=== PATIENT | male | born 1960 | race African-American/Black ===

== ENCOUNTER 2021-03-18 12:27 | Inpatient (IN) | payer OTHER ==
[2021-03-18 13:23] VITALS: BMI 37.8
[2021-03-18] MEDS ORDERED: MAG HYDROX/AL HYDROX/SIMETH 30 ML UNIT-DOSE CUP PO PRN (15:20)
[2021-03-18] MEDS ORDERED: BISMUTH SUBSALICYLATE 524 MG/30 ML PO PRN (15:20)
[2021-03-18] MEDS ORDERED: NICOTINE POLACRILEX 2 MG GUM BUC PRN (15:20)
[2021-03-18] MEDS ORDERED: MENTHOL/PHENOL 1 EACH UD MM PRN (15:20)
[2021-03-18] MEDS ORDERED: MAGNESIUM HYDROX 2400MG/30ML ORAL SUSPENSION 30 ML CUP PO PRN (15:20)
[2021-03-18] MEDS ORDERED: IBUPROFEN 400 MG TABLET (FP) PO PRN (15:20)
[2021-03-18] MEDS ORDERED: ONDANSETRON *ODT* 4 MG TABLET SL PRN (15:20)
[2021-03-18] MEDS ORDERED: MAGNESIUM CITRATE 300 ML BOTTLE PO PRN (15:20)
[2021-03-18] MEDS ORDERED: diazePAM 5 MG TABLET PO PRN (15:20)
[2021-03-18] MEDS ORDERED: ACETAMINOPHEN 325 MG TABLET (FP) PO PRN ×2 (15:20)
[2021-03-18] MEDS ORDERED: hydrOXYzine PAMOATE 25 MG CAPSULE (FP) PO PRN (15:20)
[2021-03-18] MEDS: diazePAM 5 MG TABLET PO SCH ×2 (16:30→22:26)
[2021-03-18] MEDS ORDERED: DIVALPROEX NA *ER* EXTEND REL 500 MG TABLET.SA (FP) PO SCH (22:00)
[2021-03-18] MEDS: MELATONIN 5 MG TABLETS PO SCH (22:26)
[2021-03-18] MEDS: TAMSULOSIN HCL 0.4 MG CAP PO SCH (22:26)
[2021-03-18] MEDS: ATORVASTATIN CA 10 MG TABLET (FP) PO SCH (22:26)
[2021-03-18] MEDS: THIAMINE HCL 100 MG TABLET (FP) PO SCH (22:26)
[2021-03-19] MEDS: diazePAM 5 MG TABLET PO SCH ×4 (05:38→22:10)
[2021-03-19] MEDS: HYDROCHLOROTHIAZIDE 25 MG TABLET (FP) PO SCH (10:11)
[2021-03-19] MEDS: NIFEdipine E.R. 30 MG TABLET PO SCH (10:11)
[2021-03-19] MEDS: PRENATAL VITAMINS W/ FOLIC ACID TABLET (FP) PO SCH (10:11)
[2021-03-19] MEDS: METHOCARBAMOL 500 MG TABLET PO PRN (10:12)
[2021-03-19 11:02] LABS: HEMATOCRIT 40.2 % (35.4-49); HEMOGLOBIN 12.5 GM/dL (11.7-16.9); MCH 22.8 pg (25.7-33.7); MCHC 31.1 g/dl (32.0-35.9); MEAN CELL VOLUME 73.5 fl (80-96); MEAN PLT VOLUME 9.2 fl (7.5-11.1); PLATELET COUNT 219 10^3/uL (134-434); RBC 5.46 M/mm3 (4.00-5.60); RDW 16.2 % (11.9-15.9); WHITE BLOOD COUNT 5.9 K/mm3 (4.0-10.0)
[2021-03-19 11:16] LABS: ALBUMIN 3.1 g/dl (3.4-5.0); BLOOD UREA NITROGEN 17.4 mg/dL (7-18); CALCIUM 8.6 mg/dL (8.5-10.1)
[2021-03-19 11:18] LABS: CREATININE 0.8 mg/dL (0.55-1.3)
[2021-03-19 11:19] LABS: BILIRUBIN,TOTAL 0.2 mg/dL (0.2-1)
[2021-03-19] MEDS: ATORVASTATIN CA 10 MG TABLET (FP) PO SCH (22:11)
[2021-03-19] MEDS: MELATONIN 5 MG TABLETS PO SCH (22:11)
[2021-03-19] MEDS: TAMSULOSIN HCL 0.4 MG CAP PO SCH (22:11)
[2021-03-19] MEDS: THIAMINE HCL 100 MG TABLET (FP) PO SCH (22:11)
[2021-03-19] MEDS: DIVALPROEX NA *ER* EXTEND REL 500 MG TABLET.SA (FP) PO SCH (22:12)
[2021-03-20] MEDS: diazePAM 5 MG TABLET PO SCH ×3 (05:40→22:17)
[2021-03-20] MEDS: METHOCARBAMOL 500 MG TABLET PO PRN (10:33)
[2021-03-20] MEDS: PRENATAL VITAMINS W/ FOLIC ACID TABLET (FP) PO SCH (10:33)
[2021-03-20] MEDS: NIFEdipine E.R. 30 MG TABLET PO SCH (10:33)
[2021-03-20] MEDS: HYDROCHLOROTHIAZIDE 25 MG TABLET (FP) PO SCH (10:33)
[2021-03-20] MEDS ORDERED: IBUPROFEN 600 MG TABLET (FP) PO PRN (10:35)
[2021-03-20] MEDS: LIDOCAINE 5% TOPICAL PATCH TP SCH (12:16)
[2021-03-20] MEDS: DIVALPROEX NA *ER* EXTEND REL 500 MG TABLET.SA (FP) PO SCH (22:16)
[2021-03-20] MEDS: MELATONIN 5 MG TABLETS PO SCH (22:16)
[2021-03-20] MEDS: TAMSULOSIN HCL 0.4 MG CAP PO SCH (22:16)
[2021-03-20] MEDS: ATORVASTATIN CA 10 MG TABLET (FP) PO SCH (22:16)
[2021-03-20] MEDS: THIAMINE HCL 100 MG TABLET (FP) PO SCH (22:17)
[2021-03-20] MEDS: LIDOCAINE PATCH REMOVAL MC SCH (22:18)
[2021-03-21] MEDS: diazePAM 5 MG TABLET PO SCH ×2 (05:54→17:54)
[2021-03-21] MEDS: NIFEdipine E.R. 30 MG TABLET PO SCH (10:39)
[2021-03-21] MEDS: HYDROCHLOROTHIAZIDE 25 MG TABLET (FP) PO SCH (10:39)
[2021-03-21] MEDS: PRENATAL VITAMINS W/ FOLIC ACID TABLET (FP) PO SCH (10:39)
[2021-03-21] MEDS: LIDOCAINE 5% TOPICAL PATCH TP SCH (11:36)
[2021-03-21] MEDS: TAMSULOSIN HCL 0.4 MG CAP PO SCH (22:01)
[2021-03-21] MEDS: THIAMINE HCL 100 MG TABLET (FP) PO SCH (22:01)
[2021-03-21] MEDS: ATORVASTATIN CA 10 MG TABLET (FP) PO SCH (22:01)
[2021-03-21] MEDS: DIVALPROEX NA *ER* EXTEND REL 500 MG TABLET.SA (FP) PO SCH (22:02)
[2021-03-21] MEDS: MELATONIN 5 MG TABLETS PO SCH (22:02)
[2021-03-21] MEDS: METHOCARBAMOL 500 MG TABLET PO PRN (22:03)
[2021-03-21] MEDS: LIDOCAINE PATCH REMOVAL MC SCH (23:30)
[2021-03-22] MEDS ORDERED: diazePAM 5 MG TABLET PO ONE (06:00)
[2021-03-22] MEDS: HYDROCHLOROTHIAZIDE 25 MG TABLET (FP) PO SCH (10:33)
[2021-03-22] MEDS: NIFEdipine E.R. 30 MG TABLET PO SCH (10:33)
[2021-03-22] MEDS: LIDOCAINE 5% TOPICAL PATCH TP SCH (10:33)
[2021-03-22] MEDS: PRENATAL VITAMINS W/ FOLIC ACID TABLET (FP) PO SCH (10:33)
[2021-03-22 13:36] VITALS: BP 137/81; PULSE 81; TEMP 96.8
== END 2021-03-22 17:48 | disposition other institution (70) | DRG 774 ==
LOC: YASAS 12:27 → Y3N 15:35
PROVIDERS: ADMIT Allergy & Immunology; ATTEND Allergy & Immunology
PROC: HZ2ZZZZ Detoxification Services for Substance Abuse Treatment (ICD-10-PCS; principal; 2021-03-18)
DX: F10.230 Alcohol dependence with withdrawal, uncomplicated (principal); F14.20 Cocaine dependence, uncomplicated; F12.20 Cannabis dependence, uncomplicated; F17.210 Nicotine dependence, cigarettes, uncomplicated; F31.9 Bipolar disorder, unspecified; E78.00 Pure hypercholesterolemia, unspecified; I10 Essential (primary) hypertension; G47.30 Sleep apnea, unspecified; R76.11 Nonspecific reaction to tuberculin skin test without active tuberculosis; Z91.5 Personal history of self-harm; Z95.0 Presence of cardiac pacemaker; Z99.89 Dependence on other enabling machines and devices
CPT/HCPCS: 36415; 71046-TC-FY; 80053; 85027; 86780; 93005; 93010; C9803; U0003; U0005

== ENCOUNTER 2021-03-22 17:41 | Inpatient (IN) | payer OTHER ==
[2021-03-22] MEDS ORDERED: P-EPHED 60MG/TRIPROLIDI 2.5MG TABLET PO PRN (20:16)
[2021-03-22] MEDS ORDERED: MAG HYDROX/AL HYDROX/SIMETH 30 ML UNIT-DOSE CUP PO PRN (20:16)
[2021-03-22] MEDS ORDERED: LOPERAMIDE HCL 2 MG CAPSULE PO PRN (20:16)
[2021-03-22] MEDS ORDERED: guaiFENesin 200 MG/10 ML 10 ML UNIT-DOSE CUPS PO PRN (20:16)
[2021-03-22] MEDS ORDERED: MAGNESIUM HYDROX 2400MG/30ML ORAL SUSPENSION 30 ML CUP PO PRN (20:16)
[2021-03-22] MEDS ORDERED: ACETAMINOPHEN 325 MG TABLET (FP) PO PRN (20:16)
[2021-03-22] MEDS ORDERED: MAGNESIUM CITRATE 300 ML BOTTLE PO PRN (20:16)
[2021-03-22] MEDS ORDERED: NICOTINE POLACRILEX 2 MG GUM BC PRN (20:16)
[2021-03-22] MEDS: ATORVASTATIN CA 10 MG TABLET (FP) PO SCH (22:09)
[2021-03-22] MEDS: DIVALPROEX NA *ER* EXTEND REL 500 MG TABLET.SA (FP) PO SCH (22:09)
[2021-03-22] MEDS: TAMSULOSIN HCL 0.4 MG CAP PO SCH (22:09)
[2021-03-22] MEDS: THIAMINE HCL 100 MG TABLET (FP) PO SCH (22:09)
[2021-03-22] MEDS: hydrOXYzine PAMOATE 25 MG CAPSULE (FP) PO SCH (22:09)
[2021-03-22] MEDS: PRENATAL VITAMINS W/ FOLIC ACID TABLET (FP) PO SCH (22:10)
[2021-03-22] MEDS: MELATONIN 5 MG TABLETS PO SCH (22:10)
[2021-03-23] MEDS: hydrOXYzine PAMOATE 25 MG CAPSULE (FP) PO SCH ×5 (06:51→21:42)
[2021-03-23] MEDS: LIDOCAINE 5% TOPICAL PATCH TP SCH (10:08)
[2021-03-23] MEDS: PRENATAL VITAMINS W/ FOLIC ACID TABLET (FP) PO SCH (10:08)
[2021-03-23] MEDS: NICOTINE 14 MG/24 HOURS TOPICAL PATCH TD SCH (10:08)
[2021-03-23] MEDS: HYDROCHLOROTHIAZIDE 25 MG TABLET (FP) PO SCH (10:08)
[2021-03-23] MEDS: NIFEdipine E.R. 30 MG TABLET PO SCH (10:59)
[2021-03-23] MEDS ORDERED: PT OWN MED DRAWER 7, Y5N ONE (19:34)
[2021-03-23] MEDS: THIAMINE HCL 100 MG TABLET (FP) PO SCH (21:41)
[2021-03-23] MEDS: TAMSULOSIN HCL 0.4 MG CAP PO SCH (21:41)
[2021-03-23] MEDS: LIDOCAINE PATCH REMOVAL MC SCH (21:42)
[2021-03-23] MEDS: MELATONIN 5 MG TABLETS PO SCH (21:42)
[2021-03-23] MEDS: ATORVASTATIN CA 10 MG TABLET (FP) PO SCH (21:42)
[2021-03-23] MEDS: DIVALPROEX NA *ER* EXTEND REL 500 MG TABLET.SA (FP) PO SCH (22:04)
[2021-03-24] MEDS: hydrOXYzine PAMOATE 25 MG CAPSULE (FP) PO SCH ×5 (07:34→21:38)
[2021-03-24] MEDS: PRENATAL VITAMINS W/ FOLIC ACID TABLET (FP) PO SCH (10:30)
[2021-03-24] MEDS: NICOTINE 14 MG/24 HOURS TOPICAL PATCH TD SCH (10:31)
[2021-03-24] MEDS: NIFEdipine E.R. 30 MG TABLET PO SCH (10:31)
[2021-03-24] MEDS: HYDROCHLOROTHIAZIDE 25 MG TABLET (FP) PO SCH (10:31)
[2021-03-24] MEDS: LIDOCAINE 5% TOPICAL PATCH TP SCH (10:31)
[2021-03-24] MEDS: ATORVASTATIN CA 10 MG TABLET (FP) PO SCH (21:38)
[2021-03-24] MEDS: LIDOCAINE PATCH REMOVAL MC SCH (21:38)
[2021-03-24] MEDS: DIVALPROEX NA *ER* EXTEND REL 500 MG TABLET.SA (FP) PO SCH (21:39)
[2021-03-24] MEDS: THIAMINE HCL 100 MG TABLET (FP) PO SCH (21:39)
[2021-03-24] MEDS: MELATONIN 5 MG TABLETS PO SCH (21:39)
[2021-03-24] MEDS: TAMSULOSIN HCL 0.4 MG CAP PO SCH (21:39)
[2021-03-25] MEDS: hydrOXYzine PAMOATE 25 MG CAPSULE (FP) PO SCH ×2 (06:17→10:03)
[2021-03-25] MEDS ORDERED: PT OWN MED DRAWER 7, Y5N ONE ×2 (08:37→20:00)
[2021-03-25] MEDS: PRENATAL VITAMINS W/ FOLIC ACID TABLET (FP) PO SCH (09:59)
[2021-03-25] MEDS: NIFEdipine E.R. 30 MG TABLET PO SCH (10:00)
[2021-03-25] MEDS: HYDROCHLOROTHIAZIDE 25 MG TABLET (FP) PO SCH (10:00)
[2021-03-25] MEDS: NICOTINE 14 MG/24 HOURS TOPICAL PATCH TD SCH (10:01)
[2021-03-25] MEDS: LIDOCAINE 5% TOPICAL PATCH TP SCH (10:01)
[2021-03-25] MEDS: IBUPROFEN 400 MG TABLET (FP) PO PRN (10:02)
[2021-03-25] MEDS: DIVALPROEX NA *ER* EXTEND REL 500 MG TABLET.SA (FP) PO SCH (21:30)
[2021-03-25] MEDS: ATORVASTATIN CA 10 MG TABLET (FP) PO SCH (21:30)
[2021-03-25] MEDS: THIAMINE HCL 100 MG TABLET (FP) PO SCH (21:30)
[2021-03-25] MEDS: TAMSULOSIN HCL 0.4 MG CAP PO SCH (21:30)
[2021-03-25] MEDS: hydrOXYzine PAMOATE 25 MG CAPSULE (FP) PO PRN (21:30)
[2021-03-25] MEDS: MELATONIN 5 MG TABLETS PO SCH (21:30)
[2021-03-25] MEDS: LIDOCAINE PATCH REMOVAL MC SCH (21:31)
[2021-03-26] MEDS: PRENATAL VITAMINS W/ FOLIC ACID TABLET (FP) PO SCH (10:20)
[2021-03-26] MEDS: NICOTINE 14 MG/24 HOURS TOPICAL PATCH TD SCH (10:21)
[2021-03-26] MEDS: NIFEdipine E.R. 30 MG TABLET PO SCH (10:21)
[2021-03-26] MEDS: LIDOCAINE 5% TOPICAL PATCH TP SCH (10:21)
[2021-03-26] MEDS: HYDROCHLOROTHIAZIDE 25 MG TABLET (FP) PO SCH (10:21)
[2021-03-26] MEDS: hydrOXYzine PAMOATE 25 MG CAPSULE (FP) PO PRN (14:06)
[2021-03-26] MEDS ORDERED: PT OWN MED DRAWER 7, Y5N ONE (19:33)
[2021-03-26] MEDS: TAMSULOSIN HCL 0.4 MG CAP PO SCH (21:26)
[2021-03-26] MEDS: DIVALPROEX NA *ER* EXTEND REL 500 MG TABLET.SA (FP) PO SCH (21:26)
[2021-03-26] MEDS: ATORVASTATIN CA 10 MG TABLET (FP) PO SCH (21:26)
[2021-03-26] MEDS: THIAMINE HCL 100 MG TABLET (FP) PO SCH (21:26)
[2021-03-26] MEDS: LIDOCAINE PATCH REMOVAL MC SCH (21:29)
[2021-03-26] MEDS: traZODone HCL 50 MG TABLET (FP) PO PRN (21:29)
[2021-03-26] MEDS: MELATONIN 5 MG TABLETS PO SCH (21:29)
[2021-03-27] MEDS: HYDROCHLOROTHIAZIDE 25 MG TABLET (FP) PO SCH (10:18)
[2021-03-27] MEDS: PRENATAL VITAMINS W/ FOLIC ACID TABLET (FP) PO SCH (10:18)
[2021-03-27] MEDS: LIDOCAINE 5% TOPICAL PATCH TP SCH (10:19)
[2021-03-27] MEDS: NICOTINE 14 MG/24 HOURS TOPICAL PATCH TD SCH (10:20)
[2021-03-27] MEDS: NIFEdipine E.R. 30 MG TABLET PO SCH (10:20)
[2021-03-27] MEDS ORDERED: PT OWN MED DRAWER 7, Y5N ONE (18:23)
[2021-03-27] MEDS: THIAMINE HCL 100 MG TABLET (FP) PO SCH (21:27)
[2021-03-27] MEDS: ATORVASTATIN CA 10 MG TABLET (FP) PO SCH (21:27)
[2021-03-27] MEDS: TAMSULOSIN HCL 0.4 MG CAP PO SCH (21:27)
[2021-03-27] MEDS: DIVALPROEX NA *ER* EXTEND REL 500 MG TABLET.SA (FP) PO SCH (21:27)
[2021-03-27] MEDS: MELATONIN 5 MG TABLETS PO SCH (21:27)
[2021-03-27] MEDS: traZODone HCL 50 MG TABLET (FP) PO PRN (21:29)
[2021-03-27] MEDS: LIDOCAINE PATCH REMOVAL MC SCH (23:11)
[2021-03-28] MEDS: PRENATAL VITAMINS W/ FOLIC ACID TABLET (FP) PO SCH (10:10)
[2021-03-28] MEDS: HYDROCHLOROTHIAZIDE 25 MG TABLET (FP) PO SCH (10:10)
[2021-03-28] MEDS: NIFEdipine E.R. 30 MG TABLET PO SCH (10:10)
[2021-03-28] MEDS: NICOTINE 14 MG/24 HOURS TOPICAL PATCH TD SCH (10:11)
[2021-03-28] MEDS: LIDOCAINE 5% TOPICAL PATCH TP SCH (10:11)
[2021-03-28] MEDS: DIVALPROEX NA *ER* EXTEND REL 500 MG TABLET.SA (FP) PO SCH (21:32)
[2021-03-28] MEDS: TAMSULOSIN HCL 0.4 MG CAP PO SCH (21:32)
[2021-03-28] MEDS: ATORVASTATIN CA 10 MG TABLET (FP) PO SCH (21:32)
[2021-03-28] MEDS: THIAMINE HCL 100 MG TABLET (FP) PO SCH (21:32)
[2021-03-28] MEDS: hydrOXYzine PAMOATE 25 MG CAPSULE (FP) PO PRN (21:32)
[2021-03-28] MEDS: traZODone HCL 50 MG TABLET (FP) PO PRN (21:32)
[2021-03-28] MEDS: LIDOCAINE PATCH REMOVAL MC SCH (21:33)
[2021-03-28] MEDS: MELATONIN 5 MG TABLETS PO SCH (21:33)
[2021-03-29] MEDS: PRENATAL VITAMINS W/ FOLIC ACID TABLET (FP) PO SCH (10:10)
[2021-03-29] MEDS: LIDOCAINE 5% TOPICAL PATCH TP SCH (10:10)
[2021-03-29] MEDS: NICOTINE 14 MG/24 HOURS TOPICAL PATCH TD SCH (10:10)
[2021-03-29] MEDS: NIFEdipine E.R. 30 MG TABLET PO SCH (10:10)
[2021-03-29] MEDS: HYDROCHLOROTHIAZIDE 25 MG TABLET (FP) PO SCH (10:10)
[2021-03-29] MEDS: hydrOXYzine PAMOATE 25 MG CAPSULE (FP) PO PRN ×2 (10:11→21:37)
[2021-03-29] MEDS: DIVALPROEX NA *ER* EXTEND REL 500 MG TABLET.SA (FP) PO SCH (21:37)
[2021-03-29] MEDS: THIAMINE HCL 100 MG TABLET (FP) PO SCH (21:37)
[2021-03-29] MEDS: TAMSULOSIN HCL 0.4 MG CAP PO SCH (21:37)
[2021-03-29] MEDS: ATORVASTATIN CA 10 MG TABLET (FP) PO SCH (21:37)
[2021-03-29] MEDS: LIDOCAINE PATCH REMOVAL MC SCH (21:37)
[2021-03-29] MEDS: traZODone HCL 50 MG TABLET (FP) PO PRN (21:37)
[2021-03-29] MEDS: MELATONIN 5 MG TABLETS PO SCH (21:38)
[2021-03-30] MEDS: NIFEdipine E.R. 30 MG TABLET PO SCH (10:12)
[2021-03-30] MEDS: LIDOCAINE 5% TOPICAL PATCH TP SCH (10:12)
[2021-03-30] MEDS: PRENATAL VITAMINS W/ FOLIC ACID TABLET (FP) PO SCH (10:12)
[2021-03-30] MEDS: NICOTINE 14 MG/24 HOURS TOPICAL PATCH TD SCH (10:12)
[2021-03-30] MEDS: HYDROCHLOROTHIAZIDE 25 MG TABLET (FP) PO SCH (10:12)
[2021-03-30] MEDS: IBUPROFEN 400 MG TABLET (FP) PO PRN (18:04)
[2021-03-30] MEDS ORDERED: PT OWN MED DRAWER 7, Y5N ONE (19:42)
[2021-03-30] MEDS: THIAMINE HCL 100 MG TABLET (FP) PO SCH (21:52)
[2021-03-30] MEDS: TAMSULOSIN HCL 0.4 MG CAP PO SCH (21:52)
[2021-03-30] MEDS: ATORVASTATIN CA 10 MG TABLET (FP) PO SCH (21:52)
[2021-03-30] MEDS: DIVALPROEX NA *ER* EXTEND REL 500 MG TABLET.SA (FP) PO SCH (21:53)
[2021-03-30] MEDS: traZODone HCL 50 MG TABLET (FP) PO PRN (21:55)
[2021-03-30] MEDS: LIDOCAINE PATCH REMOVAL MC SCH (23:33)
[2021-03-30] MEDS: MELATONIN 5 MG TABLETS PO SCH (23:34)
[2021-03-31] MEDS: HYDROCHLOROTHIAZIDE 25 MG TABLET (FP) PO SCH (10:00)
[2021-03-31] MEDS: PRENATAL VITAMINS W/ FOLIC ACID TABLET (FP) PO SCH (10:00)
[2021-03-31] MEDS: LIDOCAINE 5% TOPICAL PATCH TP SCH (10:01)
[2021-03-31] MEDS: NICOTINE 14 MG/24 HOURS TOPICAL PATCH TD SCH (10:01)
[2021-03-31] MEDS: NIFEdipine E.R. 30 MG TABLET PO SCH (10:01)
[2021-03-31] MEDS ORDERED: PT OWN MED DRAWER 7, Y5N ONE (18:55)
[2021-03-31] MEDS: DIVALPROEX NA *ER* EXTEND REL 500 MG TABLET.SA (FP) PO SCH (21:47)
[2021-03-31] MEDS: MELATONIN 5 MG TABLETS PO SCH (21:47)
[2021-03-31] MEDS: TAMSULOSIN HCL 0.4 MG CAP PO SCH (21:47)
[2021-03-31] MEDS: THIAMINE HCL 100 MG TABLET (FP) PO SCH (21:47)
[2021-03-31] MEDS: ATORVASTATIN CA 10 MG TABLET (FP) PO SCH (21:47)
[2021-03-31] MEDS: traZODone HCL 50 MG TABLET (FP) PO PRN (21:49)
[2021-03-31] MEDS: LIDOCAINE PATCH REMOVAL MC SCH (21:54)
[2021-04-01] MEDS: hydrOXYzine PAMOATE 25 MG CAPSULE (FP) PO PRN ×2 (02:35→10:19)
[2021-04-01] MEDS: PRENATAL VITAMINS W/ FOLIC ACID TABLET (FP) PO SCH (10:18)
[2021-04-01] MEDS: NIFEdipine E.R. 30 MG TABLET PO SCH (10:18)
[2021-04-01] MEDS: HYDROCHLOROTHIAZIDE 25 MG TABLET (FP) PO SCH (10:18)
[2021-04-01] MEDS: NICOTINE 14 MG/24 HOURS TOPICAL PATCH TD SCH (10:19)
[2021-04-01] MEDS: LIDOCAINE 5% TOPICAL PATCH TP SCH (10:19)
[2021-04-01 13:24] LABS: BASO % 0.5 % (0-2.0); EOS % 3.1 % (0-4.5); HEMATOCRIT 42.9 % (35.4-49); HEMOGLOBIN 13.5 GM/dL (11.7-16.9); LYMPH % 31.6 % (8-40); MCH 22.9 pg (25.7-33.7); MCHC 31.4 g/dl (32.0-35.9); MEAN CELL VOLUME 72.8 fl (80-96); MEAN PLT VOLUME 9.2 fl (7.5-11.1); MONO % 12.1 % (3.8-10.2); NEUT % 52.7 % (42.8-82.8); PLATELET COUNT 203 10^3/uL (134-434); RDW 15.8 % (11.9-15.9); WHITE BLOOD COUNT 6.2 K/mm3 (4.0-10.0)
[2021-04-01 13:48] LABS: ALBUMIN 3.2 g/dl (3.4-5.0); BLOOD UREA NITROGEN 12.7 mg/dL (7-18); CALCIUM 9.1 mg/dL (8.5-10.1); CREATININE 0.8 mg/dL (0.55-1.3)
[2021-04-01 13:49] LABS: BILIRUBIN,TOTAL 0.2 mg/dL (0.2-1)
[2021-04-01 13:50] LABS: TOT PROT 6.9 g/dl (6.4-8.2)
[2021-04-01] MEDS ORDERED: PT OWN MED DRAWER 7, Y5N ONE (19:49)
[2021-04-01] MEDS: THIAMINE HCL 100 MG TABLET (FP) PO SCH (21:50)
[2021-04-01] MEDS: DIVALPROEX NA *ER* EXTEND REL 500 MG TABLET.SA (FP) PO SCH (21:50)
[2021-04-01] MEDS: TAMSULOSIN HCL 0.4 MG CAP PO SCH (21:50)
[2021-04-01] MEDS: ATORVASTATIN CA 10 MG TABLET (FP) PO SCH (21:50)
[2021-04-01] MEDS: MELATONIN 5 MG TABLETS PO SCH (21:50)
[2021-04-01] MEDS: LIDOCAINE PATCH REMOVAL MC SCH (21:53)
[2021-04-01] MEDS ORDERED: traZODone HCL 100 MG TABLET (FP) PO SCH (22:00)
[2021-04-02] MEDS: PRENATAL VITAMINS W/ FOLIC ACID TABLET (FP) PO SCH (10:07)
[2021-04-02] MEDS: HYDROCHLOROTHIAZIDE 25 MG TABLET (FP) PO SCH (10:07)
[2021-04-02] MEDS: NICOTINE 14 MG/24 HOURS TOPICAL PATCH TD SCH (10:08)
[2021-04-02] MEDS: NIFEdipine E.R. 30 MG TABLET PO SCH (10:08)
[2021-04-02] MEDS: LIDOCAINE 5% TOPICAL PATCH TP SCH (10:08)
[2021-04-02] MEDS: hydrOXYzine PAMOATE 25 MG CAPSULE (FP) PO PRN (21:32)
[2021-04-02] MEDS: DIVALPROEX NA *ER* EXTEND REL 500 MG TABLET.SA (FP) PO SCH (21:32)
[2021-04-02] MEDS: THIAMINE HCL 100 MG TABLET (FP) PO SCH (21:32)
[2021-04-02] MEDS: ATORVASTATIN CA 10 MG TABLET (FP) PO SCH (21:32)
[2021-04-02] MEDS: TAMSULOSIN HCL 0.4 MG CAP PO SCH (21:32)
[2021-04-02] MEDS: LIDOCAINE PATCH REMOVAL MC SCH (21:49)
[2021-04-02] MEDS ORDERED: traZODone HCL 50 MG TABLET (FP) PO SCH (22:00)
[2021-04-02] MEDS: MELATONIN 5 MG TABLETS PO SCH (22:11)
[2021-04-03 07:13] VITALS: TEMP 97.3
[2021-04-03] MEDS: PRENATAL VITAMINS W/ FOLIC ACID TABLET (FP) PO SCH (09:10)
[2021-04-03] MEDS: NIFEdipine E.R. 30 MG TABLET PO SCH (09:10)
[2021-04-03] MEDS: HYDROCHLOROTHIAZIDE 25 MG TABLET (FP) PO SCH (09:10)
[2021-04-03] MEDS: NICOTINE 14 MG/24 HOURS TOPICAL PATCH TD SCH (09:11)
[2021-04-03] MEDS: LIDOCAINE 5% TOPICAL PATCH TP SCH (09:11)
[2021-04-03 10:58] VITALS: BP 144/73; PULSE 92
== END 2021-04-03 09:30 | disposition home or self-care (01) | DRG 772 ==
LOC: YASAS 17:41 → Y5N 17:42
PROVIDERS: ADMIT Allergy & Immunology; ATTEND Allergy & Immunology
PROC: HZ42ZZZ Group Counseling for Substance Abuse Treatment, Cognitive-Behavioral (ICD-10-PCS; principal; 2021-03-22)
DX: F10.20 Alcohol dependence, uncomplicated (principal); F14.20 Cocaine dependence, uncomplicated; F31.9 Bipolar disorder, unspecified; I10 Essential (primary) hypertension; E78.00 Pure hypercholesterolemia, unspecified; G47.30 Sleep apnea, unspecified; E66.9 Obesity, unspecified; Z68.37 Body mass index [BMI] 37.0-37.9, adult; Z95.0 Presence of cardiac pacemaker; Z99.89 Dependence on other enabling machines and devices
CPT/HCPCS: 36415; 80053; 80164; 85025